=== PATIENT | female | born 1935 | race Asian ===

== ENCOUNTER 2016-07-26 01:13 | Emergency (ER) | payer MEDICARE ==
[~2016-07-26] VITALS: Ht 147.3 cm; Wt 59.2 kg
[2016-07-26] MEDS ORDERED: METO25TA35 PO (01:37)
[2016-07-26] MEDS ORDERED: ALLO300T PO (01:37)
[2016-07-26] MEDS ORDERED: ASPI-496 PO (01:37)
[2016-07-26] MEDS ORDERED: LIDOCAINE 1%, 20ML ONE (01:39)
[2016-07-26] MEDS ORDERED: HYDROcodone/APAP 5/325 TABLET PO ONE (02:00)
[2016-07-26] MEDS ORDERED: HYDROcodone/APAP 5/325 TABLET ONE (02:04)
[2016-07-26 02:34] VITALS: BP 128/59
== END 2016-07-26 02:36 | disposition home or self-care (01) ==
LOC: ED 01:31
DX: S16.1XXA Strain of muscle, fascia and tendon at neck level, initial encounter (principal); I10 Essential (primary) hypertension; X50.0XXA Overexertion from strenuous movement or load, initial encounter; Y93.89 Activity, other specified; Y92.89 Other specified places as the place of occurrence of the external cause; Y99.8 Other external cause status
CPT/HCPCS: 72050; 93005; 99284

== ENCOUNTER → 2016-08-05 | Outpatient (CLI) | payer MEDICARE, OTHER ==
[~2016-08-05] MED LIST: ALLO300T PO; ASPI-496 PO; METO25TA35 PO
== END | disposition home or self-care (01) ==
LOC: CFH 13:48
PROVIDERS: ATTEND Nurse Practitioner
DX: M25.512 Pain in left shoulder (principal)

== ENCOUNTER → 2017-04-02 | Outpatient (CLI) | payer MEDICARE, OTHER | END | disposition home or self-care (01) | LOC: CFH 09:27 | PROVIDERS: ATTEND Nurse Practitioner | DX: I08.3 Combined rheumatic disorders of mitral, aortic and tricuspid valves (principal); E78.5 Hyperlipidemia, unspecified; I10 Essential (primary) hypertension; E11.9 Type 2 diabetes mellitus without complications | CPT/HCPCS: 93306 ==